=== PATIENT | female | born 1965 | race Caucasian/White ===

== ENCOUNTER 2017-03-21 20:29 | Emergency (ER) | payer OTHER ==
[2017-03-21 20:36] VITALS: BP 140/77; PULSE 83; TEMP 98.1; BMI 25.8
--- NOTE | 2017-03-21 20:56 | PDOC ---
History of Present Illness <Preeti Kumari I - Last Filed: 03/21/17 22:06> - General History Source: Patient Exam Limitations: No Limitations - History of Present Illness Initial Comments: 03/21/17 21:36 The patient is a 51 year old female, with no significant past medical history, who presents to the emergency department s/p mechanical fall with, pain in her collarbone and neck soreness. The patient reports she fell down the stairs hitting her head and shoulder. Secondary to her symptoms, she reports pain when moving her right hand and rib soreness. She denies numbness and tingling in her limbs. She denies LOC. She denies recent fevers, chills, headache or dizziness. She denies recent nausea, vomit, diarrhea or constipation. She denies recent dysuria, frequency, urgency or hematuria. She denies recent chest pain or shortness of breath. PAST MEDICAL HISTORY: no significant history PAST SURGICAL HISTORY: no significant history FAMILY HISTORY: no pertinent history SOCIAL HISTORY: Pt lives with family and is employed. MEDICATIONS: reviewed ALLERGIES: As per nursing notes ROS: General: No fevers or chills, no weakness, no weight loss HEENT: +Neck sore. No change in vision. No sore throat,. No ear pain CardioVascular: No chest pain or shortness of breath Respiratory:No cough, or wheezing. Gastrointestinal: no nausea, vomiting, diarrhea or constipation, No rectal bleeding Genitourinary: No dysuria, hematuria, or frequency Musculoskeletal: No joint pain or swelling Collarbone: +Pain. Neurologic: No headache, vertigo, dizziness or loss of consciousness Psychiatric: nor depression Skin: No rashes or easy bruising Endocrine: no increased thirst or abnormal weight change Allergic: no skin or latex allergy All other systems reviewed and normal Physical Exam: General: Well-nourished well-developed individual, no acute distress HEENT: Throat: Normal, tonsils normal, no erythema or exudate Neck: No cervical tenderness. Supple, no meningeal signs, no lymphadenopathy Eyes::Pupils equal reactive and round, extraocular motion intact Chest: Nontender to palpation Cardiac: S1-S2 normal, regular rate and rhythm, no murmurs rubs or gallops Respiratory: Lungs clear to auscultation bilateral Abdomen: No tenderness on palpation of ribs. Soft, nondistended, normal bowel sounds, nontender to palpation diffusely Extremities: +Right clavicle with deformity and ecchymosis. Decreased ROM of the right shoulder due to injury. No tenderness on palpation of hips. Warm, dry , no cyanosis, clubbing, or edema Skin: No rashes Neuro: Alert and oriented x3, nonfocal exam, grossly intact, normal gait Psych: Normal mood and affect <Javier Schmidt - Last Filed: 03/21/17 22:10> - General Chief Complaint: Injury Stated Complaint: S/P FALL, RT SHOULDER, RT RIBCAGE PAIN Time Seen by Provider: 03/21/17 20:36 Past History - Past Medical History COPD: No Other medical history: PT DENIES - Suicide/Smoking/Psychosocial Hx Smoking History: Never smoked Hx Alcohol Use: No Drug/Substance Use Hx: No <Preeti Kumari I - Last Filed: 03/21/17 22:06> <Javier Schmidt - Last Filed: 03/21/17 22:10> - Past Medical History Allergies/Adverse Reactions: Allergies Allergy/AdvReac Type Severity Reaction Status Date / Time No Known Allergies Allergy Verified 03/21/17 20:30 Home Medications: Ambulatory Orders Oxycodone HCl/Acetaminophen [Percocet 5-325 mg Tablet] 1 tab PO Q4H #20 tablet MDD 6 03/21/17 *Physical Exam - Vital Signs Last Vital Signs Temp Pulse Resp BP Pulse Ox 98.1 F 83 18 140/77 100 03/21/17 20:30 03/21/17 20:30 03/21/17 20:30 03/21/17 20:30 03/21/17 20:30 <Preeti Kumari I - Last Filed: 03/21/17 22:06> - Vital Signs Last Vital Signs Temp Pulse Resp BP Pulse Ox 98.1 F 83 18 140/77 100 03/21/17 20:30 03/21/17 20:30 03/21/17 20:30 03/21/17 20:30 03/21/17 20:30 <Javier Schmidt - Last Filed: 03/21/17 22:10> ED Treatment Course - Medications Given in the ED: ED Medications Discontinued Medications Generic Name Dose Route Start Last Admin Trade Name Janeen PRN Reason Stop Dose Admin Ibuprofen 600 mg 03/21/17 21:25 03/21/17 21:28 Motrin - PO 03/21/17 21:26 600 mg ONCE ONE Administration <Javier Schmidt - Last Filed: 03/21/17 22:10> *DC/Admit/Observation/Transfer - Discharge Dispostion Admit: No <Preeti Kumari I - Last Filed: 03/21/17 22:06> - Attestations Scribe Attestion: 03/21/17 21:36 Documentation prepared by Javier Schmidt, acting as medical reviewer for Preeti Kumari MD. <Javier Schmidt - Last Filed: 03/21/17 22:10> Diagnosis at time of Disposition: Right clavicle fracture Qualifiers: Encounter type: initial encounter Clavicle location: shaft Fracture type: closed Fracture alignment: displaced Qualified Code(s): S42.021A - Displaced fracture of shaft of right clavicle, initial encounter for closed fracture - Discharge Dispostion Disposition: HOME Condition at time of disposition: Stable - Prescriptions Prescriptions: Oxycodone HCl/Acetaminophen [Percocet 5-325 mg Tablet] 1 tab PO Q4H #20 tablet MDD 6 - Referrals Referrals: Yennifer Latif MD [Primary Care Provider] - - Patient Instructions Additional Instructions: Wear the sling for comfort. For pain you can take ibuprofen 3 tablets 3 times a day with food don't take on an empty stomach in addition to the ibuprofen if he needs something stronger especially at night you can take Percocet one tablet every 4 hours if needed the Percocet will make you drowsy and constipated. Follow-up with an orthopedist this week if you need an orthopedist call Dr. Hamilton at [phone]. Return to the emergency department immediately with ANY new, persistent or worsening symptoms. Continue any medications as previously prescribed by your physician. You should follow up with your primary doctor as soon as possible regarding today's emergency department visit. . Please make sure your doctor reviews the results of your emergency evaluation. Thank you for coming to the Emergency Department today for your care. It was a pleasure to see you today. Please note that your evaluation is INCOMPLETE until you follow-up with your doctor. - Post Discharge Activity
[2017-03-21] MEDS ORDERED: IBUPROFEN 600 MG TABLET (FP) PO ONE ×2 (21:25→21:27)
== END 2017-03-21 22:17 | disposition home or self-care (01) ==
LOC: FER 20:29
DX: S42.021A Displaced fracture of shaft of right clavicle, initial encounter for closed fracture (principal); W18.39XD Other fall on same level, subsequent encounter; Y93.9 Activity, unspecified; Y92.9 Unspecified place or not applicable
CPT/HCPCS: 73000-TC-RT; 99282-25

== ENCOUNTER 2022-02-04 20:47 | Inpatient (IN) | payer OTHER ==
[2022-02-04 21:09] VITALS: BMI 29.2
[2022-02-04] MEDS ORDERED: HYDROmorphone HCL CARPU-JECT 1 MG/1 ML DISP.SYRIN IVPUSH ONE ×2 (21:44→23:24)
[2022-02-04] MEDS ORDERED: HYDROmorphone HCL/PF 1 MG/ML VIAL ONE ×2 (21:52→23:25)
[2022-02-04 22:06] LABS: HEMATOCRIT 39.9 % (32.4-45.2); HEMOGLOBIN 13.4 G/dL (10.7-15.3); MCH 33.5 pg (25.7-33.7); MCHC 33.6 g/dl (32.0-36.0); MEAN CELL VOLUME 99.8 fl (80-96); MEAN PLT VOLUME 7.9 fl (7.5-11.1); PLATELET COUNT 187.8 10^3/uL (134-434); RDW 12.5 % (11.6-15.6); WHITE BLOOD COUNT 8.9 10^3/uL (4.0-10.8)
[2022-02-04 22:21] LABS: ALBUMIN 4.1 g/dl (3.4-5.0); TOT PROT 6.1 g/dl (6.4-8.2)
[2022-02-04 22:22] LABS: PROTHROMBIN TIME (PATIENT) 11.5 SEC (9.7-13.0)
[2022-02-05] MEDS ORDERED: DEXTROSE 5%-0.45% SALINE 1,000 ML IV SCH
[2022-02-05] MEDS ORDERED: ACETAMINOPHEN 1000 MG/100 ML BAG IVPB PRN (00:01)
[2022-02-05] MEDS ORDERED: HYDROmorphone HCL CARPU-JECT 1 MG/1 ML DISP.SYRIN IVPUSH ONE (00:14)
[2022-02-05] MEDS ORDERED: HYDROmorphone HCL/PF 1 MG/ML VIAL ONE (01:35)
[2022-02-05] MEDS ORDERED: morphine SULFATE 4 MG/ML VIAL IVPUSH PRN (02:00)
[2022-02-05] MEDS: KETOROLAC TROMETHAMINE 30 MG/1 ML VIAL IVPUSH PRN ×3 (08:05→21:51)
[2022-02-05 08:22] LABS: CALCIUM 8.2 mg/dl (8.5-10); CREATININE 0.8 mg/dl (0.55-1.3)
[2022-02-05 09:49] LABS: HEMATOCRIT 34.1 % (32.4-45.2); HEMOGLOBIN 11.5 GM/dL (10.7-15.3); MCH 33.8 pg (25.7-33.7); MCHC 33.8 g/dl (32.0-36.0); MEAN CELL VOLUME 99.8 fl (80-96); MEAN PLT VOLUME 8.4 fl (7.5-11.1); PLATELET COUNT 175 10^3/uL (134-434); RBC 3.42 M/mm3 (3.60-5.2); WHITE BLOOD COUNT 7.7 K/mm3 (4.0-10.0)
[2022-02-05] MEDS: ACETAMINOPHEN 1000 MG/100 ML BAG IVPB SCH ×3 (10:49→22:31)
[2022-02-05 10:56] LABS: ANISOCYTOSIS 0; HELMET CELLS 0; HOWELL-JOLLY BODIES 0; MACROCYTOSIS 0; OVALOCYTE 0; ROULEAU 0; SICKELED CELLS 0; TARGET CELLS 0; TEAR DROP CELLS 0; TOXIC GRANULATION 0
[2022-02-06] MEDS: morphine SULFATE 4 MG/ML VIAL IVPUSH PRN (00:15)
[2022-02-06] MEDS: MELATONIN 5 MG TABLETS PO PRN (00:52)
[2022-02-06 08:18] LABS: HEMATOCRIT 33.8 % (32.4-45.2); HEMOGLOBIN 11.3 G/dL (10.7-15.3); MCH 33.7 pg (25.7-33.7); MCHC 33.3 g/dl (32.0-36.0); MEAN CELL VOLUME 101.2 fl (80-96); MEAN PLT VOLUME 8.2 fl (7.5-11.1); PLATELET COUNT 130.3 10^3/uL (134-434); RBC 3.34 10^6/uL (3.60-5.2); RDW 12.3 % (11.6-15.6)
[2022-02-06 08:19] LABS: CALCIUM 8.3 mg/dl (8.5-10); CREATININE 0.7 mg/dl (0.55-1.3)
[2022-02-06] MEDS: KETOROLAC TROMETHAMINE 30 MG/1 ML VIAL IVPUSH PRN ×2 (08:53→20:19)
[2022-02-07] MEDS: MELATONIN 5 MG TABLETS PO PRN (00:49)
[2022-02-07] MEDS: morphine SULFATE 4 MG/ML VIAL IVPUSH PRN ×2 (00:49→14:30)
[2022-02-07 08:21] LABS: CALCIUM 8.1 mg/dl (8.5-10); CREATININE 0.6 mg/dl (0.55-1.3)
[2022-02-07 08:22] LABS: HEMATOCRIT 31.5 % (32.4-45.2); HEMOGLOBIN 10.5 G/dL (10.7-15.3); MCH 33.2 pg (25.7-33.7); MCHC 33.3 g/dl (32.0-36.0); MEAN CELL VOLUME 99.7 fl (80-96); MEAN PLT VOLUME 8.1 fl (7.5-11.1); PLATELET COUNT 143.3 10^3/uL (134-434); RBC 3.16 10^6/uL (3.60-5.2); RDW 12.5 % (11.6-15.6); WHITE BLOOD COUNT 6.5 10^3/uL (4.0-10.8)
[2022-02-07] MEDS: KETOROLAC TROMETHAMINE 30 MG/1 ML VIAL IVPUSH PRN ×2 (09:44→23:00)
[2022-02-07] MEDS: ACETAMINOPHEN 1000 MG/100 ML BAG IVPB SCH (21:11)
[2022-02-08] MEDS: ACETAMINOPHEN 1000 MG/100 ML BAG IVPB SCH ×4 (06:04→09:52)
[2022-02-08] MEDS: ACETAMINOPHEN 500 MG TABLET (FP) PO SCH (06:40)
[2022-02-08 09:10] LABS: HEMOGLOBIN 10.6 G/dL (10.7-15.3); MCH 33.8 pg (25.7-33.7); MCHC 34.1 g/dl (32.0-36.0); MEAN CELL VOLUME 99.2 fl (80-96); MEAN PLT VOLUME 8.3 fl (7.5-11.1); PLATELET COUNT 148.2 10^3/uL (134-434); RBC 3.13 10^6/uL (3.60-5.2); RDW 12.2 % (11.6-15.6); WHITE BLOOD COUNT 5.9 10^3/uL (4.0-10.8)
[2022-02-08 09:17] LABS: ALBUMIN 3.3 g/dl (3.4-5.0); BILIRUBIN,TOTAL 1.1 mg/dl (0.2-1); CALCIUM 8.4 mg/dl (8.5-10); CREATININE 0.6 mg/dl (0.55-1.3); TOT PROT 5.2 g/dl (6.4-8.2)
[2022-02-08] MEDS: KETOROLAC TROMETHAMINE 30 MG/1 ML VIAL IVPUSH PRN (19:47)
[2022-02-08 22:05] VITALS: BP 147/74; PULSE 93; RESP 18; TEMP 98.5
== END 2022-02-08 22:10 | disposition short-term general hospital (02) | DRG 563 ==
LOC: FER 20:47 → FM/S 02-05 00:18
PROVIDERS: ADMIT Internal Medicine; ATTEND Internal Medicine
DX: S82.251A Displaced comminuted fracture of shaft of right tibia, initial encounter for closed fracture (principal); S82.142A Displaced bicondylar fracture of left tibia, initial encounter for closed fracture; S82.492A Other fracture of shaft of left fibula, initial encounter for closed fracture; W08.XXXA Fall from other furniture, initial encounter; Y92.098 Other place in other non-institutional residence as the place of occurrence of the external cause
CPT/HCPCS: 0241U-QW; 36415; 71045-TC-FY; 73590-TC-LT-FY; 73700-TC-RT; 80048; 80053; 85027; 85610; 86850; 86900; 86901; 93005; 99285-25

== ENCOUNTER → 2022-09-17 | Day surgery (SDC) | payer OTHER | END | disposition home or self-care (01) | LOC: FMAMMOTONE 12:27 | PROVIDERS: ATTEND Family Medicine | PROC: 0HBU3ZX Excision of Left Breast, Percutaneous Approach, Diagnostic (ICD-10-PCS; principal; 2022-09-17) | DX: R92.0 Mammographic microcalcification found on diagnostic imaging of breast (principal) | CPT/HCPCS: 19081; 76098-TC-FY; 87899; 88305-TC; 88342-TC; A4648 ==